=== PATIENT | male | born 1940 | race Caucasian/White ===

== ENCOUNTER 2021-05-26 17:24 | Inpatient (IN) | payer MEDICARE, OTHER ==
[~2021-05-26] VITALS: Ht 160 cm; Wt 71.2 kg
--- NOTE | 2021-05-26 17:45 | NUR ---
The patient is [facility] [id number] from [place] "increasing agitation/confusion combative and delusional". The patient is alert and oriented x2. Denies pain. In room air and denies SOB. Respiration regular and unlabored. Will continue to monitor the patient.
--- NOTE | 2021-05-26 17:50 | NUR ---
FOR GEROPSYCH ADMISSION
[2021-05-26 17:56] LABS: BASOPHILS # (AUTO) 0.1 K/uL (0.0-0.2); BASOPHILS % (AUTO) 1.3 % (0.0-2.0); EOSINOPHILS % (AUTO) 7.1 % (0.0-6.0); HEMATOCRIT 42 % (39-51); LYMPHOCYTES # (AUTO) 1.8 K/uL (0.8-4.8); LYMPHOCYTES % (AUTO) 23.5 % (20.0-44.0); MEAN CORPUSCULAR HGB CONC 33 g/dl (31.0-36.0); MEAN CORPUSCULAR VOLUME 97 fL (80-96); MONOCYTES # (AUTO) 0.9 K/uL (0.1-1.30); MONOCYTES % (AUTO) 11.7 % (2.0-12.0); NEUTROPHILS # (AUTO) 4.2 K/uL (1.8-8.9); NEUTROPHILS % (AUTO) 56.4 % (43.0-81.0); PLATELET COUNT (AUTO) 259 K/uL (150-450); RED BLOOD CELL COUNT(AUTO) 4.32 MIL/uL (4.5-6.0); WHITE BLOOD COUNT (AUTO) 7.5 K/uL (4.3-11.0)
[2021-05-26] MEDS ORDERED: CHOL100043 PO (17:59)
[2021-05-26] MEDS ORDERED: ACET325T53 PO (17:59)
[2021-05-26] MEDS ORDERED: LOSA100T31 PO (17:59)
[2021-05-26] MEDS ORDERED: GLUC100017 PO (17:59)
[2021-05-26] MEDS ORDERED: DILT180C66 PO (17:59)
[2021-05-26] MEDS ORDERED: DOCU-141 PO (17:59)
[2021-05-26] MEDS ORDERED: MELA5TAB PO (17:59)
[2021-05-26] MEDS ORDERED: TAMS-12 PO (17:59)
[2021-05-26] MEDS ORDERED: RISP0.5T65 PO (17:59)
[2021-05-26] MEDS ORDERED: ASPI-1169 PO (17:59)
[2021-05-26] MEDS ORDERED: LORA10TA7 PO (17:59)
[2021-05-26] MEDS ORDERED: ZINC220C6 PO (17:59)
[2021-05-26] MEDS ORDERED: CALC-34 PO (17:59)
[2021-05-26] MEDS ORDERED: ASCO100031 PO (17:59)
[2021-05-26 18:09] LABS: CALCIUM, SERUM 8.8 mg/dL (8.5-10.1); CARBON DIOXIDE 23 mmol/L (21-32); CHLORIDE 102 mmol/L (98-107); GLUCOSE 105 mg/dL (74-106); POTASSIUM 4.2 mmol/L (3.5-5.1); SODIUM SERUM 135 mmol/L (136-145); UREA NITROGEN, BLOOD 16 mg/dL (7-18)
[2021-05-26 18:17] LABS: ACETAMINOPHEN < 2 ug/ml (10-30); ALCOHOL, BLOOD < 3 mg/dL (0-0)
[2021-05-26 18:25] LABS: THYROID STIMULATING HORMONE 3.179 uIU/mL (0.358-3.74)
--- NOTE | 2021-05-26 19:04 | NUR ---
PATIENT PLACED ON A URINAL. COVID SWAB SENT TO LAB.
--- NOTE | 2021-05-26 19:13 | NUR ---
Urine collected and sent to the lab
[2021-05-26 19:18] LABS: BILIRUBIN,URINE Negative (NEGATIVE); COLOR,URINE YELLOW (YELLOW); LEUKOCYTE ESTERASE ,URINE Negative (NEGATIVE); NITRITE, URINE Negative (NEGATIVE); PH,URINE 6.5 (5.0-8.0); PROTEIN,URINE Negative (NEGATIVE); UGLUCOSE Negative (NEGATIVE); UROBILINOGEN,URINE 0.2 EU/dL (0.2)
--- NOTE | 2021-05-26 19:32 | NUR ---
PINKY AT BEDSIDE FOR EVAL.
--- NOTE | 2021-05-26 19:46 | NUR ---
Makayla on the phone with Patient's daughter Addendum: 05/26/21 at 1947 by EDGAR florencia
--- NOTE | 2021-05-26 20:51 | NUR ---
REPORT GIVEN TO PAULINA COX FOR SAL.
--- NOTE | 2021-05-26 21:15 | NUR ---
GPS ADMISSION NOTE, RECEIVED PATIENT FROM [facility]. PATIENT ARRIVED ON THIS UNIT AT 2115 VIA STRETCHER WITH 1 [employer]. PATIENT ADMITTED ON A 5150 HOLD FOR GD. PER HOLD PATIENT IS ALERT AND ORIENTED X 1 BROUGHT IN BY AMBULANCE FROM [facility] DUE TO INCREASED AGITATION, PARANOIA, AND CONFUSION. ACCORDING TO PATIENT DAUGHTER PATIENT HAS BEEN INCREASINGLY CONFUSED, PARANOID , AND DELUSIONAL. PATIENT THINKS HIS IS CHEATING ON HIM AND HIS DAUGHTER IS POISONING HIS FOOD. PATIENT UNABLE TO PROVIDE A VIABLE PLAN OF SELF IN HIS CURRENT STATE OF MIND. THE 5150 WAS REVIEWED AND THE DOCUMENTATION IN THE 5150 HOLD APPEARS TO REFLECT THE PRESENTATION OF THE PATIENT. UPON FACE TO FACE ASSESSMENT PATIENT IS NOTED TO BEING HYPERVERBAL, CONFUSED, DISHEVELED, DISORGANIZED, DEMANDING, COOPERATIVE, AND NEEDS REDIRECTION. PATIENT IS CURRENTLY LYING IN BED AWAKE, HAS NO S/S OR COMPLAINTS OF PAIN. PATIENT IS DISPLAYING NO S/S OF APPARENT DISTRESS. PATIENT BREATHING IS UNLABORED WITH EQUAL RISE AND FALL OF THE CHEST. PATIENT IS ALERT AND ORIENTATED X 1 ON ROOM AIR. PATIENT ASSISTED WITH TURING AND REPOSITIONING Q2HR AND PRN FOR COMFORT AND CIRCULATION. PATIENT HAS NO NEEDS AT THIS TIME. PATIENT DENIES SUICIDE IDEATIONS AND HOMICIDAL IDEATIONS AT THIS TIME. PATIENT REFUSED TO SIGN ANY PAPER WORK AND THINKS THIS IS ALL A MISTAKE. PATIENT ADVISED OF HIS HOLD AND PATIENT RIGHTS BOOKLET GIVEN. PATIENT IS UNDER THE PSYCHIATRIC CARE OF DR. MORENO AND THE MEDICAL CARE OF DR TRUJILLO. PATIENT BELONGINGS WERE INVENTORIED AND CHECKED FOR CONTRABAND. ALL CONTRABAND REMOVED AND STORED IN PATIENT HALLWAY LOCKER. PATIENT ADVANCED DIRECTIVES PREFERENCE, IMMUNIZATIONS QUESTIONER, NECESSARY PAPERWORK COMPLETED. PATIENT SKIN ASSESSMENT COMPLETED. PATIENT ORIENTATED TO ROOM, FLOOR, AND STAFF WITH ALL QUESTIONS ANSWERED. PATIENT EDUCATED ON THE USE OF THE CALL [place]. PATIENT BED SIDE RAILS ARE UP X 2 FOR SAFETY. PATIENT BED IS LOCKED, LOW AND I WILL CONTINUE TO MONITOR THIS PATIENT Q 15 MIN WITH THE HELP OF STAFF TO MAINTAIN SAFETY.
[2021-05-26] MEDS ORDERED: MAG HYDROX/AL HYDROX/SIMETH 30 ML UDC PO PRN (22:30)
[2021-05-26] MEDS ORDERED: ACETAMINOPHEN 325 MG TABLET PO PRN (22:30)
[2021-05-26] MEDS ORDERED: ZOLPIDEM TARTRATE 5 MG TABLET PO PRN (22:30)
[2021-05-26] MEDS ORDERED: LORAZEPAM 0.5 MG TABLET PO PRN (22:30)
[2021-05-26] MEDS ORDERED: BLOOD SUGAR DIAGNOSTIC 1 EACH STRIP IN ONE (23:00)
[2021-05-26 23:57] VITALS: BP 150/95
[2021-05-27 08:00] VITALS: BP 165/90
[2021-05-27] MEDS ORDERED: HOME MED MISCELLANEOUS XX SCH (11:00)
[2021-05-27] MEDS: DILTIAZEM HCL 30 MG TABLET PO SCH ×2 (12:46→21:55)
[2021-05-27] MEDS: ASPIRIN 81 MG TAB.CHEW PO SCH (12:46)
[2021-05-27] MEDS: LOSARTAN POTASSIUM 50 MG TABLET PO SCH (12:46)
[2021-05-27] MEDS ORDERED: CHOLECALCIFEROL 1,000 UNIT TABLET (VIT D3) PO SCH (13:00)
[2021-05-27] MEDS: busPIRone 5 MG TABLET PO SCH ×2 (15:48→17:17)
[2021-05-27] MEDS: CHOLECALCIFEROL 1,000 UNIT TABLET (VIT D3) PO SCH ×2 (15:49→17:17)
[2021-05-27 16:05] VITALS: BP 154/73
[2021-05-27] MEDS: risperiDONE 0.25 MG TABLET PO SCH (17:17)
[2021-05-27 19:48] VITALS: BP 127/62
[2021-05-27] MEDS: TAMSULOSIN 0.4 MG CAP.SR.24H PO SCH (21:55)
[2021-05-27] MEDS: TRAZODONE 50 MG TABLET PO SCH (21:55)
[2021-05-27] MEDS: ACETAMINOPHEN 325 MG TABLET PO PRN (21:57)
--- NOTE | 2021-05-27 21:58 | NUR ---
BACK PAIN Patient in bed, c/o back pain 310 able to ambulate with FWW. PRN Tylenol given, will reassess.
[2021-05-28 07:04] LABS: BASOPHILS # (AUTO) 0.1 K/uL (0.0-0.2); BASOPHILS % (AUTO) 1.4 % (0.0-2.0); EOSINOPHILS % (AUTO) 7.3 % (0.0-6.0); HEMATOCRIT 42 % (39-51); HEMOGLOBIN 14.4 g/dL (13.5-17.5); LYMPHOCYTES # (AUTO) 1.5 K/uL (0.8-4.8); LYMPHOCYTES % (AUTO) 21.7 % (20.0-44.0); MEAN CORPUSCULAR HGB CONC 34 g/dl (31.0-36.0); MEAN CORPUSCULAR VOLUME 96 fL (80-96); MONOCYTES % (AUTO) 13.5 % (2.0-12.0); NEUTROPHILS # (AUTO) 3.9 K/uL (1.8-8.9); NEUTROPHILS % (AUTO) 56.1 % (43.0-81.0); PLATELET COUNT (AUTO) 259 K/uL (150-450); RED BLOOD CELL COUNT(AUTO) 4.37 MIL/uL (4.5-6.0)
[2021-05-28 07:39] LABS: CALCIUM, SERUM 8.9 mg/dL (8.5-10.1); CREATININE 0.9 mg/dL (0.6-1.3); POTASSIUM 4.1 mmol/L (3.5-5.1)
[2021-05-28 08:00] VITALS: BP 144/63
[2021-05-28] MEDS: DILTIAZEM HCL 30 MG TABLET PO SCH ×3 (08:30→20:43)
[2021-05-28] MEDS: DOCUSATE SODIUM 100 MG CAPSULE PO SCH (08:35)
[2021-05-28] MEDS: LORATADINE 10 MG TABLET PO SCH (08:35)
[2021-05-28] MEDS: CHOLECALCIFEROL (VITAMIN D 3) 400 UNIT TABLET PO SCH (08:35)
[2021-05-28] MEDS: ZINC SULFATE 220 MG CAPSULE PO SCH (08:36)
[2021-05-28] MEDS: risperiDONE 0.25 MG TABLET PO SCH ×2 (08:36→16:47)
[2021-05-28] MEDS: busPIRone 5 MG TABLET PO SCH ×3 (08:36→16:47)
[2021-05-28] MEDS: LOSARTAN POTASSIUM 50 MG TABLET PO SCH (08:36)
[2021-05-28] MEDS: ASCORBIC ACID 500 MG TABLET PO SCH (08:36)
[2021-05-28] MEDS: ASPIRIN 81 MG TAB.CHEW PO SCH (08:36)
[2021-05-28] MEDS: CALCIUM CARBONATE (1250) 500 MG TABLET PO SCH (08:36)
[2021-05-28] MEDS: CHOLECALCIFEROL 1,000 UNIT TABLET (VIT D3) PO SCH ×3 (08:37→16:47)
[2021-05-28] MEDS: MAGNESIUM HYDROXIDE 30 ML UDC PO PRN (13:45)
[2021-05-28 16:00] VITALS: BP 162/89
--- NOTE | 2021-05-28 19:48 | NUR ---
GPS OPENING NOTES: RECEIVED PATIENT IN BED AMBULATORY WITH SUPERVISION, ON MECHANICAL SOFT DIET, BED IN LOW POSITION. ON URINAL USE, NO AGGRESIVE BEHAVIOR WAS OBSERVED, PATIENT KEPT CLEAN AND DRY, WILL CONTINUE TO MONITOR
[2021-05-28 20:00] VITALS: BP 149/121
[2021-05-28] MEDS: ATORVASTATIN 10 MG TABLET PO SCH (22:04)
[2021-05-28] MEDS: TRAZODONE 50 MG TABLET PO SCH (22:04)
[2021-05-28] MEDS: TAMSULOSIN 0.4 MG CAP.SR.24H PO SCH (22:04)
[2021-05-28] MEDS: ACETAMINOPHEN 325 MG TABLET PO PRN (22:12)
--- NOTE | 2021-05-28 22:15 | NUR ---
RN NOTES PATIENT GIVEN TYLENOL 650MG PRN Q6H FOR DUE TO COMPLAIN OF HEADACHE PS-4
[2021-05-29 08:00] VITALS: BP 136/78
[2021-05-29] MEDS: CHOLECALCIFEROL (VITAMIN D 3) 400 UNIT TABLET PO SCH (08:12)
[2021-05-29] MEDS: ZINC SULFATE 220 MG CAPSULE PO SCH (08:12)
[2021-05-29] MEDS: DILTIAZEM HCL 30 MG TABLET PO SCH ×3 (08:13→21:07)
[2021-05-29] MEDS: ASCORBIC ACID 500 MG TABLET PO SCH (08:13)
[2021-05-29] MEDS: DOCUSATE SODIUM 100 MG CAPSULE PO SCH (08:13)
[2021-05-29] MEDS: ASPIRIN 81 MG TAB.CHEW PO SCH (08:13)
[2021-05-29] MEDS: CHOLECALCIFEROL 1,000 UNIT TABLET (VIT D3) PO SCH ×3 (08:13→16:48)
[2021-05-29] MEDS: risperiDONE 0.25 MG TABLET PO SCH ×2 (08:13→16:48)
[2021-05-29] MEDS: CALCIUM CARBONATE (1250) 500 MG TABLET PO SCH (08:14)
[2021-05-29] MEDS: LORATADINE 10 MG TABLET PO SCH (08:14)
[2021-05-29] MEDS: LOSARTAN POTASSIUM 50 MG TABLET PO SCH (08:14)
[2021-05-29] MEDS: busPIRone 5 MG TABLET PO SCH ×3 (08:14→16:48)
--- NOTE | 2021-05-29 09:57 | NUR ---
Point of contact: SW contacted pts daughter Beverley ([phone]) about pts care and discharge. Pts daughter reports that she is second in line for power of compliance attorney and her sister Marianna is first in line for power of compliance attorney ([phone]). Pt daughter reports that she would like pt to return back to [facility] upon discharge.
--- NOTE | 2021-05-29 10:49 | NUR ---
Point of contact: ELISA received a call from Marianna pts daughter ([phone]). Pts daughter reports that she does not have any legal documents stating that she is DPOA. Pts daughter would like pt to be discharged back to [facility]. SW informed pts daughter that she will keep her updated about a discharge date.
--- NOTE | 2021-05-29 13:46 | NUR ---
Initial discharge plan: Pt currently lives at [facility] located at [address] [place] [id number]; ([phone]). Per pt, he would like to return back to [facility] upon discharge. ELISA will work the the pt and the MD regarding appropraite discharge planning. SW will form a safe and proper discharge.
[2021-05-29 16:00] VITALS: BP 141/62
[2021-05-29 20:00] VITALS: BP 150/87
[2021-05-29] MEDS: ATORVASTATIN 10 MG TABLET PO SCH (21:07)
[2021-05-29] MEDS: TRAZODONE 50 MG TABLET PO SCH (21:07)
[2021-05-29] MEDS: TAMSULOSIN 0.4 MG CAP.SR.24H PO SCH (21:07)
[2021-05-29] MEDS: ACETAMINOPHEN 325 MG TABLET PO PRN (21:13)
[2021-05-30 08:00] VITALS: BP 162/87
[2021-05-30] MEDS: ASCORBIC ACID 500 MG TABLET PO SCH (09:16)
[2021-05-30] MEDS: ASPIRIN 81 MG TAB.CHEW PO SCH (09:16)
[2021-05-30] MEDS: DOCUSATE SODIUM 100 MG CAPSULE PO SCH (09:17)
[2021-05-30] MEDS: CHOLECALCIFEROL (VITAMIN D 3) 400 UNIT TABLET PO SCH ×3 (09:17→09:25)
[2021-05-30] MEDS: DILTIAZEM HCL 30 MG TABLET PO SCH ×3 (09:17→21:16)
[2021-05-30] MEDS: CALCIUM CARBONATE (1250) 500 MG TABLET PO SCH (09:17)
[2021-05-30] MEDS: LOSARTAN POTASSIUM 50 MG TABLET PO SCH (09:23)
[2021-05-30] MEDS: risperiDONE 0.25 MG TABLET PO SCH ×2 (09:23→17:09)
[2021-05-30] MEDS: busPIRone 5 MG TABLET PO SCH ×3 (09:23→17:09)
[2021-05-30] MEDS: LORATADINE 10 MG TABLET PO SCH (09:23)
[2021-05-30] MEDS: ZINC SULFATE 220 MG CAPSULE PO SCH (09:24)
[2021-05-30] MEDS: CHOLECALCIFEROL 1,000 UNIT TABLET (VIT D3) PO SCH ×3 (09:42→17:09)
[2021-05-30 16:00] VITALS: BP 145/73
[2021-05-30 20:00] VITALS: BP 150/70
[2021-05-30] MEDS: ATORVASTATIN 10 MG TABLET PO SCH (21:16)
[2021-05-30] MEDS: TAMSULOSIN 0.4 MG CAP.SR.24H PO SCH (21:16)
[2021-05-30] MEDS: TRAZODONE 50 MG TABLET PO SCH (21:16)
--- NOTE | 2021-05-31 07:41 | NUR ---
WOUND CARE CONSULT: PT PRESENTS WITH RT HAND/WRIST REDNESS, SLIGHT SWELLING AND FLAKING SKIN, PRESENT ON ADMISSION. DEFER TO PMD FOR SKIN CONDITION. WILL SEE PRN.
[2021-05-31 08:00] VITALS: BP 128/66
[2021-05-31] MEDS: CHOLECALCIFEROL 1,000 UNIT TABLET (VIT D3) PO SCH ×3 (08:07→17:02)
[2021-05-31] MEDS: DOCUSATE SODIUM 100 MG CAPSULE PO SCH (08:07)
[2021-05-31] MEDS: busPIRone 5 MG TABLET PO SCH ×3 (08:07→17:02)
[2021-05-31] MEDS: ZINC SULFATE 220 MG CAPSULE PO SCH (08:07)
[2021-05-31] MEDS: LORATADINE 10 MG TABLET PO SCH (08:07)
[2021-05-31] MEDS: ASPIRIN 81 MG TAB.CHEW PO SCH (08:07)
[2021-05-31] MEDS: LOSARTAN POTASSIUM 50 MG TABLET PO SCH (08:08)
[2021-05-31] MEDS: CALCIUM CARBONATE (1250) 500 MG TABLET PO SCH (08:08)
[2021-05-31] MEDS: ASCORBIC ACID 500 MG TABLET PO SCH (08:08)
[2021-05-31] MEDS: DILTIAZEM HCL 30 MG TABLET PO SCH ×3 (08:08→21:48)
[2021-05-31] MEDS: risperiDONE 0.25 MG TABLET PO SCH ×2 (08:26→17:02)
[2021-05-31 16:00] VITALS: BP 150/69
[2021-05-31] MEDS: ACETAMINOPHEN 325 MG TABLET PO PRN (19:57)
[2021-05-31 20:00] VITALS: BP 158/73
[2021-05-31] MEDS: TAMSULOSIN 0.4 MG CAP.SR.24H PO SCH (21:48)
[2021-05-31] MEDS: TRAZODONE 50 MG TABLET PO SCH (21:48)
[2021-05-31] MEDS: ATORVASTATIN 10 MG TABLET PO SCH (21:48)
[2021-06-01 08:00] VITALS: BP 158/92
[2021-06-01] MEDS: risperiDONE 0.25 MG TABLET PO SCH ×2 (08:37→16:25)
[2021-06-01] MEDS: DOCUSATE SODIUM 100 MG CAPSULE PO SCH (08:37)
[2021-06-01] MEDS: CALCIUM CARBONATE (1250) 500 MG TABLET PO SCH (08:37)
[2021-06-01] MEDS: CHOLECALCIFEROL 1,000 UNIT TABLET (VIT D3) PO SCH ×3 (08:37→16:25)
[2021-06-01] MEDS: ASCORBIC ACID 500 MG TABLET PO SCH (08:37)
[2021-06-01] MEDS: DILTIAZEM HCL 30 MG TABLET PO SCH ×3 (08:37→20:43)
[2021-06-01] MEDS: ASPIRIN 81 MG TAB.CHEW PO SCH (08:37)
[2021-06-01] MEDS: busPIRone 5 MG TABLET PO SCH ×3 (08:37→16:25)
[2021-06-01] MEDS: LOSARTAN POTASSIUM 50 MG TABLET PO SCH (08:38)
[2021-06-01] MEDS: LORATADINE 10 MG TABLET PO SCH (08:38)
[2021-06-01] MEDS: ZINC SULFATE 220 MG CAPSULE PO SCH (08:39)
--- NOTE | 2021-06-01 13:07 | NUR ---
Family contact: SW contacted pts daughter Beverley ([phone]) to inform her that pt would be discharged tomorrow at 3pm to [facility]. Pts daughter confirmed the discharge. Pt inquired if pt was receiving medication for Dementia. SW reported that she would transfer pts daughter to the nurses so she could follow up on the medication that is being given to pt.
[2021-06-01 15:59] VITALS: BP 141/56
--- NOTE | 2021-06-01 16:17 | NUR ---
Probable cause hearing: Pts 5250 hold was upheld on the grounds of gravely disabled.
[2021-06-01 20:07] VITALS: BP 143/58
[2021-06-01] MEDS: TRAZODONE 50 MG TABLET PO SCH (21:54)
[2021-06-01] MEDS: TAMSULOSIN 0.4 MG CAP.SR.24H PO SCH (21:54)
[2021-06-01] MEDS: ATORVASTATIN 10 MG TABLET PO SCH (21:55)
[2021-06-01] MEDS ORDERED: DONEPEZIL 5 MG TABLET PO SCH (22:00)
[2021-06-01] MEDS: ACETAMINOPHEN 325 MG TABLET PO PRN (22:32)
[2021-06-02 08:00] VITALS: BP 152/84
[2021-06-02] MEDS: busPIRone 5 MG TABLET PO SCH ×2 (08:46→13:41)
[2021-06-02] MEDS: LORATADINE 10 MG TABLET PO SCH (08:46)
[2021-06-02] MEDS: DOCUSATE SODIUM 100 MG CAPSULE PO SCH (08:46)
[2021-06-02] MEDS: ASPIRIN 81 MG TAB.CHEW PO SCH (08:46)
[2021-06-02] MEDS: CALCIUM CARBONATE (1250) 500 MG TABLET PO SCH (08:46)
[2021-06-02] MEDS: ASCORBIC ACID 500 MG TABLET PO SCH (08:46)
[2021-06-02] MEDS: CHOLECALCIFEROL 1,000 UNIT TABLET (VIT D3) PO SCH ×2 (08:46→13:41)
[2021-06-02] MEDS: ZINC SULFATE 220 MG CAPSULE PO SCH (08:46)
--- NOTE | 2021-06-02 08:50 | NUR ---
Dr. Espinoza gave an order to D/C hold and D/C to [facility] and to follow up with psych and medical doctors. Psychiatrist ordered to continue same meds including prn. Dr. Neumann made aware of the discharge and reconciled the meds.
[2021-06-02] MEDS: risperiDONE 0.25 MG TABLET PO SCH (08:51)
[2021-06-02] MEDS: LOSARTAN POTASSIUM 50 MG TABLET PO SCH (08:52)
[2021-06-02] MEDS: DILTIAZEM HCL 30 MG TABLET PO SCH ×2 (08:52→13:42)
[2021-06-02] MEDS: MAGNESIUM HYDROXIDE 30 ML UDC PO PRN (10:42)
[2021-06-02 13:42] VITALS: BP 146/82
--- NOTE | 2021-06-02 15:40 | NUR ---
GPS/RN DISCHARGED to [facility] and to follow up with psych and medical doctors. NO SI OR HI AT THE TIME OF DISCHARGE REPORTED. PROPERTY RETURNED. VSS. LEFT VIA AMBULANCE
== END 2021-06-02 15:15 | DRG 885 ==
LOC: ER 17:36 → GPS 20:48
PROVIDERS: ADMIT Psychiatry & Neurology Psychiatry; ATTEND Nurse Practitioner Acute Care
DX: F29 Unspecified psychosis not due to a substance or known physiological condition (principal); E87.1 Hypo-osmolality and hyponatremia; F03.91 Unspecified dementia, unspecified severity, with behavioral disturbance; E78.5 Hyperlipidemia, unspecified; F32.9 Major depressive disorder, single episode, unspecified; I10 Essential (primary) hypertension; N40.0 Benign prostatic hyperplasia without lower urinary tract symptoms; Z86.73 Personal history of transient ischemic attack (TIA), and cerebral infarction without residual deficits; Z20.822 Contact with and (suspected) exposure to COVID-19; G89.29 Other chronic pain; M48.00 Spinal stenosis, site unspecified; M19.90 Unspecified osteoarthritis, unspecified site; H91.90 Unspecified hearing loss, unspecified ear; L30.9 Dermatitis, unspecified; Z79.82 Long term (current) use of aspirin; E66.9 Obesity, unspecified; Z68.27 Body mass index [BMI] 27.0-27.9, adult
CPT/HCPCS: 36415; 70450-TC; 80048-TC; 80061-TC; 82962-TC; 84443-TC; 85025-TC; 87081-TC; 97112-TC; 97116-TC; 97530-TC; C9803; G0480